=== PATIENT | male | born 1980 | race Caucasian/White ===

== ENCOUNTER 2020-11-06 12:25 | Inpatient (IN) | payer SELFPAY ==
[~2020-11-06] VITALS: Ht 165.1 cm; Wt 61.4 kg
[2020-11-06] VITALS (7 sets, daily range): BP systolic 143–220; BP diastolic 85–135; Ht 165.1 cm; Wt 61.4 kg
--- NOTE | ~2020-11-06 | HEMODYNAMI ---
PATIENT:DEVI MONTES MEDICAL RECORD: [id number] : 80 LOCATION:[facility] ADMISSION DATE: 11/06/20 Generatedon:113:42 Patient name: DEVI MONTES Patient #: [id number] SSN: : 1980 Date of study: 11/06/2020 Page: Of Hemodynamic Procedure Report Patient Data Patient Demographics Procedure consent was obtained First Name: DEVI Gender: Male Last Name: SIMON : 1980 Middle Initial: R Age: 40 year(s) Patient #: [id number] Race: Unknown Additional ID: [id number] Contact details Address: [address] [place] [address] State: [place] City: [facility] Zip code: [address] Past Medical History Allergies Allergen Reaction Date Comments Reported Penicillins 11/06/2020 Admission Admission Data Admission Date: 11/06/2020 Admission Time: 12:25 Weight (lbs.): 135 Weight (kg.): 61.23 Procedure Procedure Types Cath Procedure Diagnostic Procedure LHC [facility] w/Coronaries Sedation Charges Moderate Sedation 10-24 minutes PCI Procedure Hemochron ACT Test AMI/SVG/WASHER AND CRUSHER TENDER PTCA or Stent PTCA PTCA Initial Procedure Description Procedure Date Procedure Date: 11/06/2020 Procedure Start Time: 12:54 Procedure End Time: 13:41 Procedure Staff Name Function Man Sheehan MD Performing Physician Rima Santos RT Monitor Trip Fierro RT Scrub Neo Goldman RN Nurse Francois Thompson RN Nurse Procedure Data Cath Procedure Fluoroscopy Diagnostic fluoroscopy Total fluoroscopy Time: 5.3 time: 5.3 min min Diagnostic fluoroscopy Total fluoroscopy dose: 732 dose: 732 mGy mGy Contrast Material Contrast Material Type Amount (ml) Isovue 300 100 Entry Location Entry Primary Successful Side Size Upsize Upsize Entry Closure Succes sful Closure Location (Fr) 1 (Fr) 2 (Fr) Remarks Device Remarks Femoral Right 6 Fr Exoseal artery Short Estimated blood loss: 10 ml Diagnostic catheters Device Type Used For End Catheter Placement MULTIPACK JL 4.0 5Fr Procedure catheter MULTIPACK 3DRC 5Fr Procedure catheter MULTIPACK Pigtail 5 Fr Procedure catheter Procedure Complications No complications Procedure Medications Medication Administration Route Dosage Oxygen etCO2 Nasal cannula 2 l/min Lidocaine 2% added to field 20 Heparin Flush Bag added to field 2 bags (1000units/500ml NS) 0.9% NaCl I.V. 200 ml/hr Benadryl I.V. 50 mg Versed I.V. 1 mg Fentanyl I.V. 50 mcg Integrilin (Bolus I.V. 5.6 ml 2mg/ml) Lopressor I.V. 5 mg Versed I.V. 1 mg Fentanyl I.V. 50 mcg Heparin Bolus I.V. 2000 units Plavix P.O. 600 mg Hemodynamics Rest Heart Rate: 78 (bpm) Pressure Samples Time Site Value (mmHg) Purpose Heart Use Rate(bpm) 13:12 LV 139/15,18 Snapshot 65 Snapshots Pre Cath Intra NCS Post Cath Vital Signs Time Heart Resp SPO2 etCO2 NIBP (mmHg) Rhythm Pain Sedation Rate (ipm) (%) (mmHg) Status Level (bpm) 12:52:22 72 13 96 33 174/102(138) NSR w/ ST 0 (11) 10(A) Elevation , No pain 12:56:48 77 19 96 33.7 148/96(132) NSR w/ ST 0 (11) 10(A) Elevation , No pain 13:01:13 70 11 98 38.9 158/93(137) NSR w/ ST 0 (11) 10(A) Elevation , No pain 13:05:35 64 13 99 33.7 149/91(144) NSR w/ ST 0 (11) 10(A) Elevation , No pain 13:10:07 63 15 98 35.9 157/94(125) NSR w/ ST 0 (11) 10(A) Elevation , No pain 13:14:36 73 12 98 36.7 145/93(128) NSR w/ ST 0 (11) 10(A) Elevation , No pain 13:18:58 75 28 100 35.2 149/94(120) NSR w/ ST 0 (11) 10(A) Elevation , No pain 13:35:11 75 14 100 38.9 154/93(128) NSR w/ ST 0 (11) 10(A) Elevation , No pain Medications Time Medication Route Dose Verified Delivered Reason Notes Effectiveness by by 12:50:57 Benadryl I.V. 50 mg Man Sánchezie used for St Stephon Goldman RN procedure 12:55:24 Oxygen etCO2 2 Man Larson used for Nasal l/min St Stephon Goldman RN procedure cannula 12:55:32 Lidocaine 2% added 20ml Man Conway for local to vial [facility] anesthetic field MD STROUD 12:55:38 Heparin Flush added 2 Man Man used for Bag to bags [facility] procedure (1000units/500ml field MD STROUD NS) 12:55:47 0.9% NaCl I.V. 200 Man Larson Per physician ml/hr St Stephon Goldman RN, MD 12:56:04 Versed I.V. 1 mg Man Larson for sedation St Stephon Goldman RN, MD 12:56:10 Fentanyl I.V. 50 Man Larson for sedation mcg St Stephon Goldman RN, MD 13:00:39 Integrilin I.V. 5.6 Man Larson for waste d (Bolus 2mg/ml) ml St Stephon Goldman RN antiplatelet 4.4 ml MD therapy of vial 13:02:56 Lopressor I.V. 5 mg Man Larson Per physician St Stephon Goldman RN, MD 13:10:16 Versed I.V. 1 mg Man Larson for sedation St Stephon Goldman RN, MD 13:10:19 Fentanyl I.V. 50 Man Larson for sedation mcg St Stephon Goldman RN, MD 13:18:09 Heparin Bolus I.V. 2000 Man Larson for after units St Stephon Goldman RN anticoagulation act results, verified with dr mobley 13:24:54 Plavix P.O. 600 Man Larson for mg St Stephon Goldman RN antiplatelet therapy Procedure Log Time Note 12:40:29 Neo Goldman RN sent for patient. Start room use. 12:49:30 Informed consent obtained and on chart 12:50:21 Procedure Status Emergent Heart Cath (AMI). 12:50:36 Time tracking: Regular hours (M-F 7:00 - 5:00) 12:50:42 Plan of Care:Hemodynamics will remain stable., Cardiac rhythm will remain stable., Comfort level will be maintained., Respiratory function will remain adequate., Patient/ family verbilizes understanding of procedure., Procedure tolerated without complication., Recovers from procedure without complications.. 12:50:45 H&P Date Dictated: 11/06/2020 ER History on chart.. 12:50:54 Warm blankets applied, and brittany hugger turned on for patient comfort. 12:50:54 Correct patient and procedure confirmed by team. 12:50:55 ECG and BP/O2 sat monitors applied to patient. 12:50:56 Vital chart was started 12:50:57 Benadryl 50 mg I.V. was administered by Neo Goldman RN; used for procedure; Verbal order read back and verified. 12:51:00 Baseline sample Acquired. 12:51:03 Rhythm: sinus rhythm , w/ ST elevation 12:51:09 Full Disclosure recording started 12:51:09 Pre-procedure instructions explained to patient. 12:51:10 Pre-op teaching completed and patient verbalized understanding. 12:51:11 Family in waiting room. 12:51:13 Patient NPO since Midnight. 12:51:31 Patient allergic to Penicillins 12:51:41 Patient Weight : 135 lbs 12:52:03 Is the patient allergic to Iodine/contrast media? No. 12:52:05 Is patient on blood thinner?No 12:52:07 Patient diabetic? No. 12:52:10 Previous problem with sedation/anesthesia? No ? 12:52:10 Snore? Yes 12:52:11 Sleep apnea? No 12:52:12 Deviated septum? No 12:52:12 Opens mouth fully? Yes 12:52:13 Sticks out tongue? Yes 12:52:14 Airway obstruction? No ? 12:52:16 Dentures? No ? 12:52:18 Pre procedure: right dorsailis pedis pulse 1+ Palpable, but thready & weak; easily obliterated 12:52:27 IV patent on arrival in right antecubital with 0.9% NaCl at [facility]. 12:52:32 Right groin area was prepped with chlora-prep and draped in sterile fashion 12:52:33 Alarms reviewed by R. N. 12:52:33 Sharps counted by scrub and verified by R.N. 12:52:35 --------ALL STOP TIME OUT------ 12:52:36 Final Timeout: patient, procedure, and site verified with staff and physician. All members of the team are in agreement. 12:52:38 Right groin site verified by team. 12:52:40 Fire Safety Assessment: A--An alcohol-based skin anteseptic being used preoperatively., C--Open oxygen or nitrous oxide is being used., D--An ESU, laser, or fiber-optic light is being used. 12:52:45 Physical assessment completed. ASA score P 2 - A patient with mild systemic disease as per Man Sheehan MD. 12:52:52 Sedation plan: IV Moderate Sedation Medication:Versed, Fentanyl 12:53:11 Use device set Femoral Dx 12:53:12 ACIST Syringe (92939) opened to sterile field. 12:53:12 Bag Decanter (2002S) opened to sterile field. 12:53:14 ACIST Hand Control (35985) opened to sterile field. 12:53:17 ACIST Manifold (65292) opened to sterile field. 12:53:18 Tegaderm 4 x 4 (1626W) opened to sterile field. 12:53:19 Medline Cath Pack ([id number]) opened to sterile field. 12:53:21 DIAGNOSTIC Multipack 5Fr catheter set (EP5124) opened to sterile field. 12:53:23 EMERALD Guide Wire (293-509) opened to sterile field. 12:53:29 SHEATH 6FR Mineral (FYM530) opened to sterile field. 12:53:54 Procedure started. 12:54:03 Local anesthetic to right femoral artery with Lidocaine 2% by Man Sheehan MD.INITIAL ACCESS ONLY 12:54:31 Zero performed for pressure channel P1 12:54:54 INFLATOR Merit BasixCompak (JU4659) opened to sterile field. 12:54:55 BMW 300cm Straight [place] 2 wire ([id number]) opened to sterile field. 12:55:24 Oxygen 2 l/min etCO2 Nasal cannula was administered by Neo Goldman RN; used for procedure; Verbal order read back and verified. 12:55:32 Lidocaine 2% 20ml vial added to field was administered by Man Sheehan MD; for local anesthetic; Verbal order read back and verified. 12:55:38 Heparin Flush Bag (1000units/500ml NS) 2 bags added to field was administered by Man Sheehan MD; used for procedure; Verbal order read back and verified. 12:55:47 0.9% NaCl 200 ml/hr I.V. was administered by Neo Goldman RN; Per physician; Verbal order read back and verified. 12:55:58 A 6 Fr Short sheath was inserted into the Right Femoral artery 12:56:04 Versed 1 mg I.V. was administered by Neo Goldman RN; for sedation; Verbal order read back and verified. 12:56:08 A MULTIPACK JL 4.0 5Fr catheter was advanced over the wire and used for Procedure. 12:56:10 Fentanyl 50 mcg I.V. was administered by Neo Goldman RN; for sedation; Verbal order read back and verified. 12:57:03 IV Extension Set opened to sterile field. 12:57:19 LCA angiography performed. 12:57:24 Catheter removed. 12:57:31 A MULTIPACK 3DRC 5Fr catheter was advanced over the wire and used for Procedure. 12:58:33 RCA angiography performed. 12:58:51 Catheter removed. 12:59:04 GUIDE 6FR JR 4.0 catheter ([id number]) opened to sterile field. 12:59:09 Proceeding to intervention. 12:59:18 Pre PCI Site: [place] PDA has 100% stenosis. 12:59:23 6 Fr JR 4 guide catheter was inserted over the wire 13:00:39 Integrilin (Bolus 2mg/ml) 5.6 ml I.V. was administered by Neo Goldman RN; for antiplatelet therapy; wasted 4.4 ml of vial Verbal order read back and verified. 13:02:40 BMW 300 wire advanced. 13:02:56 Lopressor 5 mg I.V. was administered by Neo Goldman RN; Per physician; Verbal order read back and verified. 13:03:26 Wire advanced across lesion. 13:07:15 Inflate balloon Inflation number: 1 A EUPHORA 2.5 x 15 Balloon ([id number]) was prepped and advanced across the R PDA , then inflated to 10 MITCH for 0:00 (min:sec) . 13:10:16 Versed 1 mg I.V. was administered by Neo Goldman RN; for sedation; Verbal order read back and verified. 13:10:19 Fentanyl 50 mcg I.V. was administered by Neo Goldman RN; for sedation; Verbal order read back and verified. 13:10:32 Balloon removed over the wire. 13:10:34 Wire removed. 13:10:35 Guide catheter removed. 13:10:45 A MULTIPACK Pigtail 5 Fr catheter was advanced over the wire and used for Procedure. 13:11:13 LV gram done using CARBALLO 13:11:16 Injector settings: Ml/sec: 10, Volume: 20, 13:12:29 LV hemodynamics recorded. 13:12:35 EF : 50 % 13:12:38 Catheter removed. 13:13:39 EXOSEAL 6Fr (EX600) opened to sterile field. 13:13:52 Sheath removed intact; hemostasis achieved with Exoseal to the Right Femoral artery. 13:14:28 Contrast amount:Isovue 300 100ml. 13:14:33 Procedure ended.(Physican Out) 13:14:55 Fluoroscopy time 05.30 minutes. 13:14:59 Fluoroscopy dose: 732 mGy 13:14:59 Flurop Dose total: 732 13:15:06 Dose Area Product 50044 mGy/cm. 13:15:09 Sharps counted by scrub and verified by R.N. 13:15:12 Post-op/insertion site Right Femoral artery dressed using a 4 x 4 and Tegaderm. 13:15:14 Post-procedure physical assessment completed. ASA score P 2 - A patient with mild systemic disease as per Man Sheehan MD. 13:15:18 Post procedure rhythm: unchanged. 13:15:20 Estimated blood loss: 10 ml 13:15:32 Post procedure instruction explained to patient.Patient verbalizes understanding. 13:15:32 Patient needs reinforcement of post procedure teaching. 13:16:44 Procedure type changed to Cath procedure, Diagnostic procedure, LHC, LHC w/Coronaries, Sedation Charges, Moderate Sedation 10-24 minutes, PCI procedure, Hemochron ACT Test, AMI/SVG/WASHER AND CRUSHER TENDER PTCA or Stent, PTCA, PTCA Initial 13:17:23 ACT drawn and resulted at 196 seconds. (normal therapeutic range 180-240 seconds). 13:17:45 Procedure and supply charges have been captured, reviewed, submitted and are correct. 13:17:55 Procedure Complication : No complications 13:18:09 Heparin Bolus 2000 units I.V. was administered by Buffie Goldman RN; for anticoagulation; after act results, verified with dr mobley Verbal order read back and verified. 13:18:47 [facility] Findings: MVD- PCI performed (see procedure note) 13:18:48 Operative report dictated upon procedure completion. 13:18:48 See physician's report for complete and final results. 13:21:06 Vital chart was stopped 13:24:54 Plavix 600 mg P.O. was administered by Neo Goldman RN; for antiplatelet therapy; Verbal order read back and verified. 13:25:17 WAITING FOR IT APPLICATION DEVELOPMENT MANAGER TO CALL BACK WITH A ROOM NUMBER TO TRANSFER PATIENT OUT OF CATERPILLAR DRIVER 13:41:54 Report given to PCU. 13:41:57 Patient transfered to PCU with Bed. 13:41:59 Procedure ended. 13:41:59 Full Disclosure recording stopped 13:42:04 End room use (Document Last) Intervention Summary Intervention Notes Time ActionType Lesion and Equipment Action# Pressure Duration Attributes Used 13:07:15 Inflate R PDA EUPHORA 1 10 00:00 balloon 2.5 x 15 Balloon ([id number]) Device Usage Item Name Manufacture Quantity Catalog Hospital Part Current Minimal L ot# / Number Charge Number Stock Stock Serial# Code ACIST Acist 1 12255 282366 676544 926639 20 Syringe Medical (69264) Systems Inc Bag Microtek 1 590726 92418 657411 5 Decanter Medical Inc. () ACIST Hand Acist 1 40032 562909 033170 694481 5 Control Medical (83940) Systems Inc ACIST Acist 1 08051 079125 961484 337483 5 Manifold Medical (11912) Systems Inc Tegaderm 4 3M 1 1626W 688534 889693 386640 5 x 4 (1626W) Medline Medline 1 [id number] 960298 32969 503304 5 Cath Pack ([id number]) DIAGNOSTIC Cardinal 1 WN7890 094939 53650 574371 30 Multipack Health 5Fr catheter set (VI2408) EMERALD Cardinal 1 502-455 186329 884758 509252 5 Guide Wire Health (502455) SHEATH 6FR Terumo 1 SYN685 344616 916393 824757 40 Mineral (EDP864) INFLATOR Merit 1 OI9905 576606 388404 510508 15 [facility] BasixCompak (QZ1423) BMW 300cm Malin 1 9221422 773750 557866 820814 5 Straight Vascular [place] 2 wire (9508373) MULTIPACK Cardinal 1 345838 5 JL 4.0 5Fr Health catheter MULTIPACK Cardinal 1 578814 5 3DRC 5Fr Health catheter GUIDE 6FR Medtronic 1 SE7IJ23 967798 04232 974435 1 JR 4.0 catheter (QN6DX07) IV Hospira 1 88368-56 575909 41095 975567 5 Extension Set EUPHORA 2.5 Medtronic 1 [id number] 166933 571536 043815 5 2 [id number] x 15 Balloon ([id number]) MULTIPACK Cardinal 1 945235 5 Pigtail 5 Health Fr catheter EXOSEAL 6Fr Cardinal 1 EX600 500619 691603 285395 10 (EX600) Health Signature Audit [place] Stage Time Signature Unsigned Intra-Procedure 11/06/2020 Rima Santos 1:42:20 PM RT(R) Intra-Procedure 11/06/2020 Neo Goldman RN 1:42:35 PM Intra-Procedure 11/06/2020 Man Deluca 1:42:50 PM Stephon STROUD [facility] [address] [place] [address]
--- NOTE | 2020-11-06 12:45 | NUR ---
TO UROLOGIST VIA STRETCHER WITH UROLOGIST STAFF.
[2020-11-06 12:55] LABS: CALC OSMOLALITY 280 mosm/kg (275-300); CALCIUM 8.8 mg/dL (8.5-10.1); CARBON DIOXIDE 27.8 mmol/L (21.0-32.0); CHLORIDE - SERUM 103 mmol/L (98-107); CREATININE - SERUM 1.1 mg/dL (0.6-1.3); GLUCOSE 112 mg/dL (74-106); POTASSIUM - SERUM 3.8 mmol/L (3.5-5.1); SODIUM 141 mmol/L (136-145); UREA NITROGEN 10 mg/dL (7-18); eGFR NON AFRICAN AMERICAN 79 mL/min (90-120)
[2020-11-06 13:00] LABS: BASOPHILS 0.9 % (0-2); EOSINOPHILS 3.6 % (0-7); HEMATOCRIT 49.7 % (42.0-54.0); HEMOGLOBIN 17.5 g/dL (13.5-17.5); LYMPHOCYTES 27.2 % (15-50); MCH 33.4 pg (26.0-34.0); MCHC 35.3 g/dL (31.0-37.0); MCV 94.5 fL (80.0-100.0); MEAN PLATELET VOLUME 7.1 fL (7.4-10.4); MONOCYTES 6.6 % (2-11); NEUTROPHILS 61.7 % (40-80); RBC 5.26 10x6/uL (4.20-6.10); RDW 13.7 % (11.5-14.5)
[2020-11-06 13:08] LABS: ALBUMIN 4.2 g/dL (3.4-5.0); ALKALINE PHOSPHATASE 92 U/L (30-120); ALT (SGPT) 144 U/L (10-68); BILIRUBIN - TOTAL 0.65 mg/dL (0.2-1.3); CHOL - HDL RATIO 6.2 ratio (2.3-4.9); CHOLESTEROL, TOTAL 204 mg/dL (0-200); HDL CHOLESTEROL 33 mg/dL (32-96); LDL CHOLESTEROL 109 mg/dL (0-100); LDL-HDL RATIO 3.3 ratio (1.5-3.5); PROTEIN - SERUM 7.6 g/dL (6.4-8.2); TRIGLYCERIDE 310 mg/dL (30-200)
[2020-11-06 13:10] LABS: TROPONIN-I < 0.017 ng/mL (0.000-0.060)
[2020-11-06 13:19] LABS: PLATELET COUNT 191 10x3/uL (130-400)
--- NOTE | 2020-11-06 14:11 | NUR ---
PATIENT ARRIVED VIA STRETCHER TO ROOM. ACCOMPANINED BY FAMILY AND HOSPITAL STAFF. PATIENT IS CHEERFUL AND RELAXED. NO CURRENT PAIN AT THIS TIME. CHEST PAIN RESOLVED AFTER BALLOON. RESP EVEN AND UNLABORED ON ROOM AIR. PATIENT ORIENTED X 4. XO SEAL TO RIGHT GROIN CLEAN DRY AND INTACT. HEART SOUNDS REGULAR RATE AND RYTHYM. PATIENT INFORMED OF LAYING FLAT FOR 4 HOURS DUE TO PROCEDURE. WILL SIT HIM UP TO EAT IN 4 HOURS. NO SKIN ISSUES NOTED. B/P 146/95 HR 73 97.8 T O2 98 RA 18 R
[2020-11-07 01:51] VITALS: BP 174/103
--- NOTE | 2020-11-07 07:50 | OP ---
PATIENT NAME: DEVI MONTES MEDICAL RECORD: [id number] :80 LOCATION:D.M2 D.2125 ADMISSION DATE:11/06/20 SURGEON: MAYNOR DONALDSON MD DATE OF OPERATION: 11/06/2020 PROCEDURE: Left heart catheterization, selective coronary artery plus PTCA to the right coronary artery, right femoral artery approach. CATHETERS: A 5-Djiboutian sheath, 5/4 left and right Kalyani, 5/4 pig. The procedure was well tolerated, proceeded immediately to stenting of PDA of the right coronary. Procedure was finished. FINDINGS: Left ventriculography in 30-degree CARBALLO view shows inferior apical hypokinesis. Overall, LV function, however, is preserved at 50% or better. CORONARY ANATOMY: LEFT MAIN: Left main is free of disease. LAD: Has mild luminal irregularities, but no flow obstructive disease. CIRCUMFLEX: Large circumflex, mild obstructive coronary artery disease with no flow obstructive stenosis. RIGHT CORONARY ARTERY: At the distal PDA is totally occluded with EMMY flow to 0 distally. IMPRESSION: Inferior myocardial infarction, occluded into the right coronary artery/posterior descending artery. PLAN: Intervention momentarily. DESCRIPTION: A 5-Djiboutian sheath was exchanged for a 6-Djiboutian sheath. A JR right guiding catheter provided excellent guide catheter support followed by 300 cm BMW wire. Balloon used was a 2.5 x 15 mm Euphora balloon up to 14 atmospheres for 45 seconds. Final angiography shows excellent resolution of 100% stenosis. No significant residual. EMMY flow started at 0 and improved to 3 at the end of the case. Heparin and Integrilin were used. Plavix was loaded in the lab. Sheath closed with ExoSeal device. Other postoperative TN medications will be started appropriately. TRANSINT:[id number] Voice Confirmation ID: [id number] DOCUMENT ID: [id number] MAYNOR DONALDSON MD at 0750 CC: [id number] DICTATION DATE: 11/06/20 1320 MUSIC ENGRAVER: 11/06/20 1404 ADM IN [place] [id number] [place] [id number]
--- NOTE | 2020-11-07 07:50 | HP ---
PATIENT: DEVI MONTES MEDICAL RECORD: [id number] ACCOUNT: [id number] LOCATION:[address] : [birth year] ADMISSION DATE: 11/06/20 PCP: No PCP HISTORY AND PHYSICAL EXAMINATION HISTORY OF PRESENT ILLNESS: A 40-year-old gentleman with no known history of coronary artery disease with no significant past medical history, does have a history of smoking. He has a strong history of coronary artery disease, presented to the ER with 2-hour history of chest pressure, tightness, diaphoresis, nausea, found to have inferior myocardial infarction, was brought to the blood bank laboratory professional on urgent basis. PAST MEDICAL HISTORY: Unremarkable. MEDICATIONS: None chronically. ALLERGIES: None known. PHYSICAL EXAMINATION: GENERAL: Uncomfortable appearing, diaphoretic. VITAL SIGNS: Blood pressure 150/100, pulse 70 irregular. HEENT: Normocephalic, atraumatic. HEART: Regular. S4 gallop is noted. LUNGS: Good air excursion. ABDOMEN: Soft and nontender. EXTREMITIES: Pulses 2+. No edema. IMPRESSION: Acute inferior myocardial infarction/ST elevation myocardial infarction. PLAN: Urgent angiography and intervention based on the above. TRANSINT:[id number] Voice Confirmation ID: [id number] DOCUMENT ID: [id number] MAYNOR DONALDSON MD at 0750 CC: [id number] DICTATION DATE: 11/06/20 1322 COTTON BALER: 11/06/20 1345 ADM IN [place] [id number] [place] [address]
[2020-11-07 08:00] VITALS: BP 156/89
--- NOTE | 2020-11-07 10:43 | NUR ---
PT RECEIVED AWAKE AND ALERT. SITTING UP IN BED EATING BREAKFAST. MEDS GIVEN, HOPING TO GO HOME. RIGHT GROIN DRESSING IS CDI.
[2020-11-07 12:00] VITALS: BP 132/88
--- NOTE | 2020-11-07 14:38 | NUR ---
SCRIPTS IN HAND, DISCHARGE PAPERS SIGNED AND REVIEWED. IV OUT AND TELEMETRY REMOVED. AMBULATED SELF TO ER FOR HOME.
--- NOTE | 2020-11-11 07:57 | DS ---
PATIENT:DEVI MONTES :80 MEDICAL RECORD: [id number] DISCHARGE SUMMARY ADMISSION DATE: 11/06/20 DISCHARGE DATE: 11/07/20 PROBLEM LIST: 1. Inferior STEMI, subsequent intervention. 2. Dyslipidemia. 3. Hypertension. PROCEDURE PERFORMED: Left heart catheterization, selective coronary artery, plus intervention of the right coronary. HOSPITAL COURSE: A 40-year-old gentleman with a strong family history of coronary artery disease was admitted with STEMI inferior, underwent intervention of the right coronary artery, distal PDA, did extremely well with no postoperative arrhythmias. Blood pressure was slightly elevated, started on beta blockade as well as statin therapy, Plavix and aspirin. LV function was normal. At the time of angiography, pressure was still elevated, consider starting an ARB as an outpatient. Discharged home in good condition. ACTIVITIES: As tolerated. DIET: AHA diet. FOLLOWUP: In the office in about 3-4 weeks. TRANSINT:[id number] Voice Confirmation ID: [id number] DOCUMENT ID: [id number] MAYNOR DONALDSON MD at 0757 CC: [id number] DICTATION DATE: 11/07/20 0827 PLASTIC DIE MAKER APPRENTICE: 11/07/202050 DIS IN 11/07/20 [place] [address] [place] [address]
== END 2020-11-07 14:39 | disposition home or self-care (01) | DRG 251 ==
LOC: D.ER 12:25 → D.M2 12:49
PROVIDERS: Emergency Medicine; ADMIT Internal Medicine Interventional Cardiology; ATTEND Internal Medicine Interventional Cardiology
PROC: B2151ZZ Fluoroscopy of Left Heart using Low Osmolar Contrast (ICD-10-PCS; 2020-11-06)
PROC: 4A023N7 Measurement of Cardiac Sampling and Pressure, Left Heart, Percutaneous Approach (ICD-10-PCS; 2020-11-06)
PROC: 02703ZZ Dilation of Coronary Artery, One Artery, Percutaneous Approach (ICD-10-PCS; principal; 2020-11-06 12:40)
PROC: B2111ZZ Fluoroscopy of Multiple Coronary Arteries using Low Osmolar Contrast (ICD-10-PCS; 2020-11-06 12:40)
DX: I21.19 ST elevation (STEMI) myocardial infarction involving other coronary artery of inferior wall (principal); E78.5 Hyperlipidemia, unspecified; I10 Essential (primary) hypertension